=== PATIENT | male | born 1935 | race Caucasian/White ===

== ENCOUNTER 2023-09-19 09:10 | Emergency (ER) | payer MEDICARE, SELFPAY | END 2024-09-18 12:00 | disposition home or self-care (01) | PROVIDERS: Emergency Provider Emergency Medicine; PCP Internal Medicine; Referring Provider Emergency Medicine | DX: I10 Essential (primary) hypertension (principal); Z53.29 Procedure and treatment not carried out because of patient's decision for other reasons ==